=== PATIENT | male | born 1985 | race Caucasian/White ===

== ENCOUNTER 2017-06-19 13:30 | Emergency (ER) | payer OTHER ==
[2017-06-19 13:38] VITALS: BP 109/70; PULSE 72; TEMP 98.3; BMI 19.8
[2017-06-19] MEDS ORDERED: ONDANSETRON 4 MG/2 ML VIAL IVPB ONE (13:38)
[2017-06-19] MEDS ORDERED: SODIUM CHLORIDE 2,000 ML IV STA (13:38)
[2017-06-19] MEDS ORDERED: ONDANSETRON 4 MG/2 ML VIAL ONE (13:40)
--- NOTE | 2017-06-19 13:40 | PDOC ---
History of Present Illness - General Chief Complaint: Vomiting/Diarrhea Stated Complaint: N/V/D Time Seen by Provider: 06/19/17 13:35 History Source: Patient, Unavil. due to pt. cond. 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 woke up with nausea and vomiting ( multiple episodes) and one episode of diarrhea. Timing/Duration: 24 hours Severity: mild Modifying Factors: worse with: cold therapy, eating, immobilization, medication , movement, rest, other Associated Symptoms: denies: denies symptoms, chest pain, cough, diaphoresis, fever/chills, headaches, loss of appetite, malaise, nausea/vomiting, rash, seizure, shortness of breath, syncope, weakness, other Aspirin Received prior to arrival: Yes: no aspirin today Past History - Past Medical History Allergies/Adverse Reactions: Allergies Allergy/AdvReac Type Severity Reaction Status Date / Time No Known Allergies Allergy Verified 06/19/17 13:31 Home Medications: Ambulatory Orders Aspirin [Aspirin EC] 81 mg PO DAILY 06/19/17 Ondansetron [Zofran *Odt*] 8 mg SL TID #30 od.tablet 06/19/17 Comment:: 06/19/17 13:41 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 Review of Systems - Review of Systems Able to Perform ROS?: Yes Is the patient limited Sami proficient: No Constitutional: Yes: See HPI HEENTM: No: Symptoms Reported Respiratory: No: Symptoms reported Cardiac (ROS): No: Symptoms Reported ABD/GI: Yes: See HPI : No: Symptoms Reported Musculoskeletal: No: Symptoms Reported Integumentary: No: Symptoms Reported Neurological: No: Symptoms reported Psychiatric: No: Anxiety, Depression Endocrine: No: Symptoms Reported Hematologic/Lymphatic: No: Symptoms Reported All Other Systems: Reviewed and Negative *Physical Exam - Physical Exam General Appearance: Yes: Nourished. No: Apparent Distress HEENT: positive: Normal ENT Inspection Neck: positive: Supple. negative: Tender Respiratory/Chest: positive: Lungs Clear, Normal Breath Sounds. negative: Respiratory Distress Cardiovascular: positive: Regular Rhythm, Regular Rate. negative: Murmur Gastrointestinal/Abdominal: positive: Normal Bowel Sounds, Flat, Soft. negative : Distended, Guarding, Rebound, Tenderness Male Genitalia: positive: other (deferred) Rectal Exam: positive: deferred Lymphatic: negative: Adenopathy, Tenderness Musculoskeletal: positive: Normal Inspection. negative: CVA Tenderness Extremity: positive: Normal Capillary Refill, Normal Inspection, Normal Range of Motion Integumentary: positive: Normal Color, Warm Neurologic: positive: Fully Oriented, Alert, Normal Mood/Affect ED Treatment Course - LABORATORY CBC & Chemistry Diagram: 06/19/17 13:50 06/19/17 13:50 Medical Decision Making - Medical Decision Making 06/19/17 14:45 REEXAM abdomen is non tender and no peritoneal signs. Patient is feeling much better. *DC/Admit/Observation/Transfer Diagnosis at time of Disposition: Gastroenteritis - Discharge Dispostion Disposition: HOME Condition at time of disposition: Improved Admit: No - Referrals - Patient Instructions Printed Discharge Instructions: DI for Viral Gastroenteritis -- Adult Additional Instructions: Tae- So sorry that you have to go through this on GIVING. Hopefully it will pass quickly. Use the zofran as needed for nausea and vomiting. Return to us if worse. Follow up with your regular doctor next week. Best- Dr. Otto Javier - Post Discharge Activity
[2017-06-19 14:06] LABS: BASOPHIL 1.5 % (0-2.0); EOSINOPHIL 0.4 % (0-4.5); MCH 31.6 pg (25.7-33.7); MEAN CELL VOLUME 92.9 fl (80-96); MEAN PLT VOLUME 8.7 fl (7.5-11.1); NEUTROPHILS 89.4 % (42.8-82.8); PLATELET COUNT 216 K/MM3 (134-434); RDW 11.9 % (11.9-15.9); WHITE BLOOD COUNT 15.8 K/mm3 (4.0-10.8)
[2017-06-19 14:24] LABS: ALBUMIN 4.5 g/dl (3.5-5.0); ALK PHOS 40 U/L (32-92); ANION GAP -1 (8-16); BILIRUBIN,TOTAL 2.2 mg/dl (0.2-1.0); CALCIUM 8.7 mg/dl (8.4-10.2); CO2 25 mmol/L (22-28); CREATININE 0.8 mg/dl (0.6-1.3); GLUCOSE,RANDOM 94 mg/dl (74-106); SGOT/AST 20 U/L (10-42); SGPT/ALT 19 U/L (10-40); TOT PROT 7.1 g/dl (6.4-8.3)
[2017-06-19 14:53] LABS: URINE APPEARANCE Clear; URINE BILIRUBIN Negative (NEGATIVE); URINE GLUCOSE (UA) Negative (NEGATIVE); URINE KETONE 1+ (NEGATIVE); URINE LEUK ESTERASE Negative (NEGATIVE); URINE NITRITE Negative (NEGATIVE); URINE PROTEIN Negative (NEGATIVE); URINE UROBILINOGEN 0.2 (0.2-1.0)
[2017-06-19 14:54] LABS: URINE BLOOD Trace-intact (NEGATIVE); URINE COLOR YELLOW
[2017-06-19 15:12] LABS: URINE BACTERIA MODERATE /hpf (NEGATIVE); URINE WBC 0-2 (0-2)
== END 2017-06-19 15:07 | disposition home or self-care (01) ==
LOC: FER 13:30
PROC: 3E033GC Introduction of Other Therapeutic Substance into Peripheral Vein, Percutaneous Approach (ICD-10-PCS; principal; 2017-06-19)
PROC: 3E0337Z Introduction of Electrolytic and Water Balance Substance into Peripheral Vein, Percutaneous Approach (ICD-10-PCS; 2017-06-19)
DX: A08.4 Viral intestinal infection, unspecified (principal)
CPT/HCPCS: 36415; 80053; 81003; 81015; 83690; 85025; 99281-25